=== PATIENT | female | born 1930 | race Caucasian/White ===

== ENCOUNTER 2018-02-08 14:51 | Outpatient (CLI) | payer OTHER ==
[~2018-02-08 14:51] MED LIST: AMOX1TAB5 PO; ANTIVERT25 M1 PO; CODEINE SULFATE30 MG PO; INTESTINEX1 CA1 PO; LIPITOR20 MG PO; LOVAZA1 G PO; METOPROLOL SUCC25 MG PO; PLAVIX75 MG PO; PROPAFENONE HC150 MG PO; PROTONIX40 MG PO; SYNTHROID75 MCG PO; TRAM1TAB98 PO; TRAMADOL HCL-AP1 TAB; WARFARIN SODIUM5 MG PO
== END 2018-02-08 14:52 | disposition home or self-care (01) ==
LOC: RAD 14:51
DX: M50.00 Cervical disc disorder with myelopathy, unspecified cervical region (principal); M50.10 Cervical disc disorder with radiculopathy, unspecified cervical region

== ENCOUNTER 2019-03-21 07:47 | Outpatient (CLI) | payer OTHER | END 2019-03-21 07:53 | disposition home or self-care (01) | LOC: NUCLEAR 07:47 | DX: I65.29 Occlusion and stenosis of unspecified carotid artery (principal) ==

== ENCOUNTER 2019-04-28 12:05 | Emergency (ER) | payer OTHER ==
[~2019-04-28] VITALS: Ht 144.8 cm; Wt 38.1 kg
== END 2019-04-28 15:44 | disposition home or self-care (01) ==
LOC: ER 12:05
DX: G89.11 Acute pain due to trauma (principal); M54.5 Low back pain; M25.552 Pain in left hip; M51.37 Other intervertebral disc degeneration, lumbosacral region

== ENCOUNTER → 2020-11-29 15:00 | Outpatient (CLI) | payer OTHER | END | disposition home or self-care (01) | LOC: PPH VACUNA 15:00 | PROVIDERS: ATTEND Emergency Medicine Pediatric Emergency Medicine | DX: Z23 Encounter for immunization (principal) ==

== ENCOUNTER 2020-12-20 07:19 | Outpatient (CLI) | payer OTHER | END 2020-12-20 07:20 | disposition home or self-care (01) | LOC: NUCLEAR 07:19 | DX: I82.409 Acute embolism and thrombosis of unspecified deep veins of unspecified lower extremity (principal) ==

== ENCOUNTER 2021-01-07 09:10 | Emergency (ER) | payer OTHER ==
[~2021-01-07] VITALS: Ht 142.2 cm; Wt 32.2 kg
[2021-01-07] MEDS ORDERED: COZAAR25 MG (09:30)
== END 2021-01-07 14:52 | disposition home or self-care (01) ==
LOC: ER 09:10
DX: S70.02XA Contusion of left hip, initial encounter (principal); S70.01XA Contusion of right hip, initial encounter; W07.XXXA Fall from chair, initial encounter; Y93.89 Activity, other specified; Y92.098 Other place in other non-institutional residence as the place of occurrence of the external cause; Y99.8 Other external cause status

== ENCOUNTER 2021-03-07 13:53 | Emergency (ER) | payer OTHER ==
[~2021-03-07] VITALS: Ht 134.6 cm; Wt 33.1 kg
[~2021-03-07 13:53] MED LIST changes: +COZAAR25 MG
[2021-03-07] MEDS ORDERED: ELIQUIS5 MG PO (13:58)
[2021-03-07] MEDS ORDERED: ELIQUIS2.5 MG PO (13:59)
[2021-03-07] MEDS ORDERED: DULCOLAX STOOL100 M1 PO (15:42)
[2021-03-07] MEDS ORDERED: MEDROLPACK PO (15:42)
== END 2021-03-07 15:49 | disposition home or self-care (01) ==
LOC: ER 13:53
DX: S30.0XXA Contusion of lower back and pelvis, initial encounter (principal); M54.89 Other dorsalgia; W18.09XA Striking against other object with subsequent fall, initial encounter; Y93.89 Activity, other specified; Y92.89 Other specified places as the place of occurrence of the external cause; Y99.8 Other external cause status